=== PATIENT | male | born 1955 | race Caucasian/White ===

== ENCOUNTER 2020-06-01 07:20 | Inpatient (IN) ==
[2020-06-01] MEDS ORDERED: DEXTROSE 50% 25 GM/50 ML VIAL IV PRN ×2 (09:17)
[2020-06-01] MEDS ORDERED: GLUCAGON 1 MG VIAL IM PRN ×2 (09:17)
[2020-06-01] MEDS ORDERED: ZALEPLON 5 MG CAPSULE PO PRN (09:21)
[2020-06-01] MEDS ORDERED: CLORAZEPATE 3.75 MG TABLET PO PRN (09:21)
[2020-06-01] MEDS ORDERED: NITROGLYCERIN SL 0.4 MG TABLET SL PRN (09:22)
[2020-06-01] MEDS: SODIUM CHLORIDE 0.9% 1,000 ML IV SCH (09:30)
[2020-06-01 10:16] LABS: ABG HCO3 25.2 MMOL/L (20-26); ABG Oxygen Saturation 97.6 % (95-100); ABG PCO2 39.4 MM HG (35-48); ABG PH 7.417 (7.35-7.45); ABG PO2 95.5 MM HG (80-95)
[2020-06-01 10:38] LABS: Basophils % 0.6 % (0.0-0.8); Eosinophils # 0.2 10*3/uL (0.0-0.87); Eosinophils % 2.1 % (0.00-10.9); Hematocrit 42.2 VOL% (42.0-52.0); Immature Granulocytes % 0.3 %; Immature Granulocytes Absolute 0.02 #; Lymphocytes # 1.7 10*3/uL (1.4-4.0); Lymphocytes % 23.7 % (21.2-54.2); Mean Corpuscular HGB Conc 33.2 GM/DL (32-36); Mean Corpuscular Volume 87.6 FL (87-102); Mean Platelet Volume 10.8 FL (9.6-12.0); Monocytes % 9.2 % (1.7-12.7); Neutrophils % 64.1 % (38.7-73.9); Platelet Count 236 T/CUMM (130-400); Red Blood Count 4.82 MC/CUMM (3.8-5.5); Red Cell Distribution Width 13.2 % (9.3-17.3); White Blood Count 7.3 T/CUMM (4-12)
[2020-06-01 11:11] LABS: Albumin 3.4 G/DL (3.4-5.0); Bilirubin,Total 0.5 MG/DL (0.2-1.0); Calcium 9.1 MG/DL (8.5-10.1); Osmolality,Calculated 284.1 MOS/KG (273-304); Total Protein 8.4 G/DL (6.4-8.3)
[2020-06-01] MEDS: INSULIN REGULAR 100 UNIT/ML SUBCUT SCH ×3 (13:25→21:52)
[2020-06-01] MEDS: CHLORHEXIDINE 4% SOLN 118 ML BOTTLE TOP SCH ×2 (15:09→21:49)
[2020-06-01] MEDS ORDERED: PANTOPRAZOLE 40 MG TABLET PO ONE ×3 (15:48→23:09)
[2020-06-01] MEDS ORDERED: DIAZEPAM 5 MG TABLET PO ONE (15:48)
[2020-06-01] MEDS: CHLORHEXIDINE 0.12% ORAL RINSE 60 ML BOTTLE SWISH/SPIT SCH (21:49)
[2020-06-01] MEDS: carvediloL 3.125 MG TABLET PO SCH (21:49)
[2020-06-01] MEDS ORDERED: DIAZEPAM 5 MG TABLET ONE (23:08)
[2020-06-02] MEDS ORDERED: PAPAVERINE 60 MG/2 ML VIAL ONE (04:23)
[2020-06-02] MEDS ORDERED: VANCOMYCIN 500 MG VIAL ONE (04:24)
[2020-06-02] MEDS ORDERED: VANCOMYCIN 1,000 MG VIAL ONE (04:24)
[2020-06-02] MEDS ORDERED: CEFUROXIME INJ 1,500 MG in SODIUM CHLORIDE 0.9% 100 ML IV ONE (05:00)
[2020-06-02] MEDS ORDERED: HEPARIN/NACL 0.9% 2 UNITS/ML 500 ML IV ONE (05:46)
[2020-06-02] MEDS ORDERED: PHENYLEPHRINE DRIP 20 MG/250 ML PREMIX IV ONE ×2 (05:47→05:59)
[2020-06-02] MEDS ORDERED: NITROGLYCERIN DRIP 50 MG/250 ML BOTTLE IV ONE ×2 (05:47→06:03)
[2020-06-02] MEDS: CHLORHEXIDINE 4% SOLN 118 ML BOTTLE TOP SCH ×2 (05:56→12:36)
[2020-06-02] MEDS ORDERED: AMINOCAPROIC ACID 5,000 MG/20 ML VIAL ONE ×4 (05:56)
[2020-06-02] MEDS: SODIUM CHLORIDE 0.9% 1,000 ML IV SCH ×2 (05:56→20:00)
[2020-06-02] MEDS ORDERED: CALCIUM CHLORIDE 1,000 MG/10 ML VIAL IV ONE ×2 (05:57→10:46)
[2020-06-02] MEDS ORDERED: LIDOCAINE 2% 5 ML VIAL ONE ×2 (06:02→11:09)
[2020-06-02] MEDS ORDERED: ETOMIDATE 40 MG/20 ML VIAL IV ONE (06:02)
[2020-06-02] MEDS ORDERED: LACTATED RINGERS 1,000 ML IV ONE (06:03)
[2020-06-02] MEDS ORDERED: SODIUM CHLORIDE 0.9% 1,000 ML IV ONE (06:03)
[2020-06-02] MEDS ORDERED: SODIUM CHLORIDE 0.9% 250 ML IV ONE (06:03)
[2020-06-02] MEDS ORDERED: SUFentanil 250 MCG/5 ML AMP ONE ×3 (06:06→07:38)
[2020-06-02] MEDS ORDERED: MIDAZOLAM 10 MG/2 ML VIAL ONE ×4 (06:06→07:38)
[2020-06-02] MEDS ORDERED: VECURONIUM 10 MG VIAL IV ONE (06:07)
[2020-06-02 07:44] LABS: ABG Base Excess -1.6 MMOL/L (-2.5-2.5); ABG HCO3 23.1 MMOL/L (20-26); ABG Oxygen Saturation 99.7 % (95-100); ABG PCO2 32.6 MM HG (35-48); ABG PH 7.434 (7.35-7.45); ABG TCO2 19.2 MMOL/L (23-27); Glucose Heart Surgery 274 MG/DL (74-106); Hematocrit Heart Surgery 37.8 PERCENT (42-52); Hemoglobin Heart Surgery 12.3 G/DL (14.0-18.0); Ionized Calcium Arterial 1.23 MMOL/L (1.21-1.46); PCO2 Patient Temp Arterial 32.6 MMHG; PH Patient Temp Arterial 7.434; Patient Temperature 37 CELCIUS; Potassium Heart/CVR 4.2 MMOL/L (3.5-5.1); Sodium Heart/CVR 139 MMOL/L (135-145)
[2020-06-02] MEDS ORDERED: PHENYLEPHRINE DRIP 40 MG/250 ML PREMIX IV ONE (07:44)
[2020-06-02] MEDS ORDERED: NITROPRUSSIDE 50 MG/2 ML VIAL ONE (07:45)
[2020-06-02] MEDS ORDERED: MINERAL OIL/PETROLATUM OPH OINT 3.5 GM TUBE ONE (08:09)
[2020-06-02 08:23] LABS: Bilirubin,Urine Negative (Negative); Blood, Urine Negative (Negative); Glucose,Urine (UA) >=500 mg/dL (Negative); Ketones,Urine Negative (Negative); Mucus,Urine Occasional /LPF (Occasional); Nitrite,Urine Negative (Negative); Protein,Urine 30 MG/DL; RBC,Urine 1 /HPF (0-4); Squamous Epithelial Cell,Urine Occasional /HPF (0-10); Urine Appearance CLEAR (Clear); Urine Color Yellow (Yellow); Urine Specific Gravity 1.033 (1.001-1.035); Urine Urobilinogen < 2.0 EU/DL (0.2-1.0); WBC,Urine 1 /HPF (0-6)
[2020-06-02 09:24] LABS: Hematocrit Heart Surgery 28.4 PERCENT (42-52); Hemoglobin Heart Surgery 9.1 G/DL (14.0-18.0); PCO2 Patient Temp Venous 36.7 MM HG; PH Patient Temp Venous 7.438; PO2 Patient Temp Venous 40.4 MM HG; Potassium Heart/CVR 5.3 MMOL/L (3.5-5.1); VBG Base Excess 0.9 MEQ/L (0-4); VBG Oxygen Saturation 81.1 %; VBG PCO2 40.5 MMHG (41-51); VBG PH 7.409; VBG PO2 46.4 MMHG (17-40)
[2020-06-02 09:53] LABS: Hematocrit Heart Surgery 30.7 PERCENT (42-52); Hemoglobin Heart Surgery 9.9 G/DL (14.0-18.0); PCO2 Patient Temp Venous 31.9 MM HG; PH Patient Temp Venous 7.486; PO2 Patient Temp Venous 34.4 MM HG; Potassium Heart/CVR 5.2 MMOL/L (3.5-5.1); VBG Base Excess 1.2 MEQ/L (0-4); VBG HCO3 25.2 MEQ/L (24-28); VBG Oxygen Saturation 78.3 %; VBG PCO2 36.9 MMHG (41-51); VBG PH 7.441; VBG PO2 42.4 MMHG (17-40)
[2020-06-02 10:23] LABS: Hemoglobin Heart Surgery 10.3 G/DL (14.0-18.0); PCO2 Patient Temp Venous 35.5 MM HG; PH Patient Temp Venous 7.453; PO2 Patient Temp Venous 44.3 MM HG; Potassium Heart/CVR 5.5 MMOL/L (3.5-5.1); VBG Base Excess 1.2 MEQ/L (0-4); VBG HCO3 25.2 MEQ/L (24-28); VBG Oxygen Saturation 80.2 %; VBG PCO2 35.5 MMHG (41-51); VBG PH 7.453; VBG PO2 44.3 MMHG (17-40)
[2020-06-02 11:05] LABS: ABG Base Excess -0.5 MMOL/L (-2.5-2.5); ABG HCO3 22.9 MMOL/L (20-26); ABG Oxygen Saturation 99.4 % (95-100); ABG PCO2 33.2 MM HG (35-48); ABG PH 7.457 (7.35-7.45); ABG PO2 476.3 MM HG (80-95); ABG TCO2 23.9 MMOL/L (23-27); Glucose Heart Surgery 303 MG/DL (74-106); Hemoglobin Heart Surgery 10.8 G/DL (14.0-18.0); Ionized Calcium Arterial 1.27 MMOL/L (1.21-1.46); PCO2 Patient Temp Arterial 33.2 MMHG; PH Patient Temp Arterial 7.457; PO2 Patient Temp Arterial 476.3 MM HG; Patient Temperature 37 CELCIUS; Potassium Heart/CVR 4.7 MMOL/L (3.5-5.1); Sodium Heart/CVR 132 MMOL/L (135-145)
[2020-06-02] MEDS ORDERED: PROTAMINE SULFATE 250 MG/25 ML VIAL IV ONE (11:09)
[2020-06-02] MEDS ORDERED: MANNITOL 100 GM/500 ML BAG IV ONE (11:09)
[2020-06-02] MEDS ORDERED: DEXTROSE 5% KCL 20 MEQ 20 MEQ/1,000 ML BAG IV ONE (11:09)
[2020-06-02] MEDS ORDERED: MAGNESIUM SULFATE 5 GM/10 ML VIAL IV ONE (11:09)
[2020-06-02] MEDS ORDERED: ALBUMIN 25% 25 GM/100 ML VIAL IV ONE (11:09)
[2020-06-02] MEDS ORDERED: methylPREDNISolone SOD SUC 1,000 MG/8 ML VIAL ONE (11:09)
[2020-06-02] MEDS ORDERED: HEPARIN 10,000 UNIT/10 ML VIAL ONE (11:10)
[2020-06-02] MEDS ORDERED: FUROSEMIDE 20 MG/2 ML VIAL ONE (11:10)
[2020-06-02] MEDS ORDERED: SODIUM BICARBONATE 50 MEQ/50 ML VIAL IV ONE (11:10)
[2020-06-02] MEDS ORDERED: PROTAMINE SULFATE 50 MG/5 ML VIAL IV ONE ×2 (11:10→11:23)
[2020-06-02] MEDS ORDERED: THROMBIN TOPICAL (RECOMBINANT) 5,000 UNIT VIAL TOP ONE (11:34)
[2020-06-02] MEDS: LACTATED RINGERS 1,000 ML IV PRN ×5 (12:00→17:20)
[2020-06-02] MEDS ORDERED: INSULIN REGULAR 100 UNIT/ML IV ONE (12:07)
[2020-06-02] MEDS ORDERED: VECURONIUM 10 MG VIAL IV PRN ×2 (12:07)
[2020-06-02] MEDS ORDERED: MORPHINE 10 MG/1 ML VIAL IV PRN (12:07)
[2020-06-02] MEDS ORDERED: DEXTROSE 50% 25 GM/50 ML VIAL IV PRN ×2 (12:07)
[2020-06-02] MEDS ORDERED: MAGNESIUM SULF RIDER 2 GM in PREMIX 1 EACH IV PRN (12:07)
[2020-06-02] MEDS ORDERED: NITROPRUSSIDE 100 MG in DEXTROSE 5% 250 ML IV PRN (12:07)
[2020-06-02] MEDS ORDERED: CHLORHEXIDINE 4% SOLN 118 ML BOTTLE TOP PRN (12:07)
[2020-06-02] MEDS ORDERED: CALCIUM CHLORIDE 1,000 MG/10 ML SYRINGE IV PRN (12:07)
[2020-06-02] MEDS ORDERED: ACETAMINOPHEN 650 MG SUPP RECTAL PRN (12:07)
[2020-06-02] MEDS ORDERED: MIDAZOLAM 10 MG/2 ML VIAL IV PRN (12:07)
[2020-06-02] MEDS ORDERED: SODIUM CHLORIDE 0.45% 1,000 ML IV SCH (12:07)
[2020-06-02] MEDS ORDERED: MAGNESIUM SULF RIDER 4 GM in PREMIX 1 EACH IV PRN (12:07)
[2020-06-02] MEDS ORDERED: INSULIN REGULAR 100 UNIT/ML IV PRN (12:07)
[2020-06-02] MEDS ORDERED: MIDAZOLAM 2 MG/2 ML VIAL IV PRN (12:07)
[2020-06-02] MEDS ORDERED: MORPHINE 4 MG/1 ML VIAL IV PRN (12:07)
[2020-06-02] MEDS ORDERED: LACTATED RINGERS 250 ML IV PRN (12:07)
[2020-06-02 12:29] LABS: ABG Base Excess -0.5 MMOL/L (-2.5-2.5); ABG PH 7.477 (7.35-7.45); ABG TCO2 19.9 MMOL/L (23-27); Glucose Heart Surgery 318 MG/DL (74-106); Hematocrit Heart Surgery 33.4 PERCENT (42-52); Hemoglobin Heart Surgery 10.8 G/DL (14.0-18.0)
[2020-06-02 12:32] LABS: Basophils % 0.2 % (0.0-0.8); Eosinophils # 0.1 10*3/uL (0.0-0.87); Eosinophils % 0.7 % (0.00-10.9); Hematocrit 31.5 VOL% (42.0-52.0); Hemoglobin 10.6 GM/DL (14.0-18.0); Immature Granulocytes Absolute 0.12 #; Lymphocytes # 1.4 10*3/uL (1.4-4.0); Lymphocytes % 11.2 % (21.2-54.2); Mean Corpuscular HGB Conc 33.7 GM/DL (32-36); Mean Corpuscular Volume 86.1 FL (87-102); Mean Platelet Volume 10.7 FL (9.6-12.0); Monocytes % 7.2 % (1.7-12.7); Neutrophils % 79.7 % (38.7-73.9); Platelet Count 167 T/CUMM (130-400); Red Blood Count 3.66 MC/CUMM (3.8-5.5); Red Cell Distribution Width 13.2 % (9.3-17.3); White Blood Count 12.1 T/CUMM (4-12)
[2020-06-02] MEDS: DOBUTamine 500 MG/250 ML PREMIX IV PRN (12:59)
[2020-06-02 13:01] LABS: CKMB % 6.5 %
[2020-06-02 13:06] LABS: Troponin I 8.13 NG/ML (0.00-0.045)
[2020-06-02 13:11] LABS: Albumin 2.9 G/DL (3.4-5.0); Bilirubin,Total 1.2 MG/DL (0.2-1.0); Calcium 8.7 MG/DL (8.5-10.1); Osmolality,Calculated 288.5 MOS/KG (273-304); Total Protein 6.4 G/DL (6.4-8.3)
[2020-06-02] MEDS: INSULIN REGULAR DRIP 100 ML IV SCH (13:11)
[2020-06-02] MEDS: SODIUM CHLORIDE 0.45% 1,000 ML IV SCH (13:31)
[2020-06-02 13:36] LABS: INR 1.3; PT Patient Result 13.4 SECS (9.8-11.9); Partial Thromboplastin Time 27.1 SECS (23.9-33.8)
[2020-06-02 14:16] LABS: ABG Base Excess 0.4 MMOL/L (-2.5-2.5); ABG HCO3 24.8 MMOL/L (20-26); ABG PCO2 32.5 MM HG (35-48); ABG PH 7.468 (7.35-7.45); Glucose Heart Surgery 282 MG/DL (74-106); Hematocrit Heart Surgery 34.2 PERCENT (42-52); Hemoglobin Heart Surgery 11.1 G/DL (14.0-18.0); Potassium Heart/CVR 3.5 MMOL/L (3.5-5.1)
[2020-06-02] MEDS: POTASSIUM CHLORIDE RIDER 20 MEQ in PREMIX 1 EACH IV PRN ×3 (14:36→23:41)
[2020-06-02] MEDS: ALBUMIN 5% 12.5 GM in PREMIX 1 EACH IV PRN ×3 (14:36→21:10)
[2020-06-02] MEDS: POTASSIUM CHLORIDE RIDER 10 MEQ in PREMIX 1 EACH IV PRN ×3 (15:15→19:16)
[2020-06-02] MEDS: PHENYLEPHRINE DRIP 40 MG/250 ML PREMIX IV PRN (15:51)
[2020-06-02 16:55] LABS: ABG Base Excess -0.7 MMOL/L (-2.5-2.5); ABG HCO3 23.8 MMOL/L (20-26); ABG PCO2 33.5 MM HG (35-48); ABG PH 7.442 (7.35-7.45); ABG TCO2 20.8 MMOL/L (23-27); Glucose Heart Surgery 202 MG/DL (74-106); Hematocrit Heart Surgery 30.6 PERCENT (42-52); Hemoglobin Heart Surgery 9.9 G/DL (14.0-18.0); Potassium Heart/CVR 3.9 MMOL/L (3.5-5.1)
[2020-06-02] MEDS: AMIODARONE INJ 150 MG in DEXTROSE 5% 100 ML IV ONE ×2 (18:54→18:55)
[2020-06-02] MEDS ORDERED: AMIODARONE INJ 450 MG in DEXTROSE 5% 241 ML IV SCH (19:00)
[2020-06-02 19:01] LABS: ABG Base Excess -1.5 MMOL/L (-2.5-2.5); ABG HCO3 23.2 MMOL/L (20-26); ABG Oxygen Saturation 99.1 % (95-100); ABG PCO2 37.1 MM HG (35-48); ABG TCO2 20.9 MMOL/L (23-27); Glucose Heart Surgery 204 MG/DL (74-106); Hematocrit Heart Surgery 30.9 PERCENT (42-52); Potassium Heart/CVR 4.3 MMOL/L (3.5-5.1)
[2020-06-02] MEDS: AMIODARONE INJ 450 MG in DEXTROSE 5% 241 ML IV SCH (19:06)
[2020-06-02] MEDS: CEFUROXIME INJ 1,500 MG in SODIUM CHLORIDE 0.9% 100 ML IV SCH (19:08)
[2020-06-02] MEDS ORDERED: FUROSEMIDE 40 MG/4 ML VIAL IV PRN (19:36)
[2020-06-02] MEDS: KETOROLAC 30 MG/1 ML VIAL IV SCH (19:55)
[2020-06-02] MEDS: INSULIN REGULAR 100 UNIT/ML SUBCUT SCH ×2 (19:59→20:00)
[2020-06-02] MEDS: carvediloL 3.125 MG TABLET PO SCH (20:00)
[2020-06-02] MEDS: CHLORHEXIDINE 0.12% ORAL RINSE 60 ML BOTTLE SWISH/SPIT SCH ×2 (20:00→20:04)
[2020-06-02 20:50] LABS: CKMB % 5.1 %
[2020-06-02 20:51] LABS: Troponin I 4.93 NG/ML (0.00-0.045)
[2020-06-02 22:27] LABS: ABG Base Excess -5.5 MMOL/L (-2.5-2.5); ABG HCO3 20.7 MMOL/L (20-26); ABG Oxygen Saturation 98.4 % (95-100); ABG PCO2 43.6 MM HG (35-48); ABG PH 7.295 (7.35-7.45); ABG PO2 148.2 MM HG (80-95); ABG TCO2 22.1 MMOL/L (23-27); Glucose Heart Surgery 199 MG/DL (74-106); Hemoglobin Heart Surgery 10.4 G/DL (14.0-18.0)
[2020-06-02 23:11] LABS: ABG Base Excess -5.5 MMOL/L (-2.5-2.5); ABG HCO3 19.9 MMOL/L (20-26); ABG Oxygen Saturation 98.8 % (95-100); ABG PH 7.307 (7.35-7.45); ABG TCO2 18.8 MMOL/L (23-27); Glucose Heart Surgery 243 MG/DL (74-106); Hematocrit Heart Surgery 30.5 PERCENT (42-52); Hemoglobin Heart Surgery 9.9 G/DL (14.0-18.0); Potassium Heart/CVR 3.8 MMOL/L (3.5-5.1)
[2020-06-03] MEDS: POTASSIUM CHLORIDE RIDER 10 MEQ in PREMIX 1 EACH IV PRN (00:15)
[2020-06-03 01:14] LABS: ABG Base Excess -3.3 MMOL/L (-2.5-2.5); ABG HCO3 21.6 MMOL/L (20-26); ABG Oxygen Saturation 96.7 % (95-100); ABG PCO2 32.8 MM HG (35-48); ABG PH 7.407 (7.35-7.45); ABG PO2 83.8 MM HG (80-95); ABG TCO2 18.9 MMOL/L (23-27); Glucose Heart Surgery 211 MG/DL (74-106); Hematocrit Heart Surgery 29.8 PERCENT (42-52); Hemoglobin Heart Surgery 9.6 G/DL (14.0-18.0); Potassium Heart/CVR 4.8 MMOL/L (3.5-5.1)
[2020-06-03 02:17] LABS: ABG HCO3 21.9 MMOL/L (20-26); ABG Oxygen Saturation 99.4 % (95-100); ABG PCO2 39.6 MM HG (35-48); ABG PH 7.356 (7.35-7.45); ABG TCO2 20.3 MMOL/L (23-27); Glucose Heart Surgery 185 MG/DL (74-106); Hematocrit Heart Surgery 30.1 PERCENT (42-52); Hemoglobin Heart Surgery 9.7 G/DL (14.0-18.0); Potassium Heart/CVR 4.5 MMOL/L (3.5-5.1)
[2020-06-03] MEDS: INSULIN REGULAR DRIP 100 ML IV SCH (02:52)
[2020-06-03] MEDS: LACTATED RINGERS 1,000 ML IV PRN (02:55)
[2020-06-03] MEDS: ONDANSETRON 4 MG/2 ML VIAL IV PRN ×2 (03:43→09:30)
[2020-06-03] MEDS: ALBUMIN 5% 12.5 GM in PREMIX 1 EACH IV PRN ×3 (03:46→09:29)
[2020-06-03 04:18] LABS: ABG Base Excess -2.7 MMOL/L (-2.5-2.5); ABG HCO3 22.7 MMOL/L (20-26); ABG PCO2 41.9 MM HG (35-48); ABG PH 7.352 (7.35-7.45); ABG PO2 115.6 MM HG (80-95); Glucose Heart Surgery 117 MG/DL (74-106); Hemoglobin Heart Surgery 9.6 G/DL (14.0-18.0); Potassium Heart/CVR 4.2 MMOL/L (3.5-5.1)
[2020-06-03] MEDS ORDERED: FUROSEMIDE 40 MG/4 ML VIAL IV ONE (04:24)
[2020-06-03 04:39] LABS: Basophils % 0.1 % (0.0-0.8); Hematocrit 28.4 VOL% (42.0-52.0); Hemoglobin 9.2 GM/DL (14.0-18.0); Immature Granulocytes % 0.5 %; Immature Granulocytes Absolute 0.07 #; Lymphocytes # 0.5 10*3/uL (1.4-4.0); Lymphocytes % 3.6 % (21.2-54.2); Mean Corpuscular HGB Conc 32.4 GM/DL (32-36); Mean Platelet Volume 11.4 FL (9.6-12.0); Monocytes % 7.1 % (1.7-12.7); Neutrophils % 88.7 % (38.7-73.9); Platelet Count 135 T/CUMM (130-400); Red Blood Count 3.19 MC/CUMM (3.8-5.5); Red Cell Distribution Width 13.5 % (9.3-17.3); White Blood Count 13.4 T/CUMM (4-12)
[2020-06-03 04:50] LABS: Albumin 3.7 G/DL (3.4-5.0); Bilirubin,Direct 0.2 MG/DL (0.0-0.20); Bilirubin,Total 0.7 MG/DL (0.2-1.0); CKMB % 6.6 %; Calcium 8.3 MG/DL (8.5-10.1); Osmolality,Calculated 283.4 MOS/KG (273-304); Total Protein 6.5 G/DL (6.4-8.3)
[2020-06-03 04:51] LABS: Troponin I 4.54 NG/ML (0.00-0.045)
[2020-06-03] MEDS: KETOROLAC 30 MG/1 ML VIAL IV SCH (05:15)
[2020-06-03] MEDS: CEFUROXIME INJ 1,500 MG in SODIUM CHLORIDE 0.9% 100 ML IV SCH ×2 (06:20→18:20)
[2020-06-03 07:12] LABS: Glucose Heart Surgery 121 MG/DL (74-106); Hemoglobin Heart Surgery 10.1 G/DL (14.0-18.0); PCO2 Patient Temp Venous 50.8 MM HG; PH Patient Temp Venous 7.318; PO2 Patient Temp Venous 33.7 MM HG; Patient Temperature 37 CELCIUS; Potassium Heart/CVR 4.4 MMOL/L (3.5-5.1); Sodium Heart/CVR 137 MMOL/L (135-145); VBG HCO3 25.5 MEQ/L (24-28); VBG Oxygen Saturation 55.2 %; VBG PCO2 50.8 MMHG (41-51); VBG PH 7.318; VBG PO2 33.7 MMHG (17-40)
[2020-06-03] MEDS: INSULIN REGULAR 100 UNIT/ML SUBCUT SCH ×4 (08:03→21:39)
[2020-06-03] MEDS: AMIODARONE INJ 450 MG in DEXTROSE 5% 241 ML IV SCH ×2 (08:03→09:30)
[2020-06-03] MEDS: CHLORHEXIDINE 0.12% ORAL RINSE 60 ML BOTTLE SWISH/SPIT SCH ×2 (08:37→21:55)
[2020-06-03 09:21] LABS: Band Neutrophils 5 % (0-10); Hypochromasia 1+; Lymphocytes 6 % (20-55); Microcytosis 1+; Segmented Neutrophils 85 % (50-85); Total Cells Counted 100
[2020-06-03 09:22] LABS: Platelet Estimate Adequate
[2020-06-03] MEDS ORDERED: PANTOPRAZOLE 40 MG VIAL IV ONE (09:45)
[2020-06-03] MEDS ORDERED: PROMETHAZINE INJ 12.5 MG in SODIUM CHLORIDE 0.9% 50 ML IV PRN (10:48)
[2020-06-03] MEDS: AMIODARONE 200 MG TABLET PO SCH ×2 (11:48→22:48)
[2020-06-03 13:02] LABS: CKMB % 6.9 %
[2020-06-03 13:05] LABS: Troponin I 5.09 NG/ML (0.00-0.045)
[2020-06-03] MEDS: SODIUM CHLORIDE 0.45% 1,000 ML IV SCH (15:44)
[2020-06-03] MEDS: DOBUTamine 500 MG/250 ML PREMIX IV PRN (15:45)
[2020-06-03] MEDS: PHENYLEPHRINE DRIP 40 MG/250 ML PREMIX IV PRN (15:46)
[2020-06-03] MEDS ORDERED: SODIUM CHLORIDE 0.45% 1,000 ML IV SCH (16:00)
[2020-06-03] MEDS ORDERED: ROSUVASTATIN 20 MG TABLET PO SCH (21:00)
[2020-06-04] MEDS: INSULIN REGULAR 100 UNIT/ML SUBCUT SCH ×6 (01:35→23:00)
[2020-06-04 05:14] LABS: Basophils % 0.1 % (0.0-0.8); Hematocrit 29.9 VOL% (42.0-52.0); Hemoglobin 9.8 GM/DL (14.0-18.0); Immature Granulocytes % 1.1 %; Immature Granulocytes Absolute 0.21 #; Lymphocytes # 1.2 10*3/uL (1.4-4.0); Lymphocytes % 5.9 % (21.2-54.2); Mean Corpuscular HGB Conc 32.8 GM/DL (32-36); Mean Platelet Volume 11.6 FL (9.6-12.0); Monocytes % 9.1 % (1.7-12.7); Neutrophils % 83.8 % (38.7-73.9); Platelet Count 147 T/CUMM (130-400); Red Blood Count 3.36 MC/CUMM (3.8-5.5); Red Cell Distribution Width 13.8 % (9.3-17.3)
[2020-06-04 05:35] LABS: Albumin 3.5 G/DL (3.4-5.0); Bilirubin,Direct 0.29 MG/DL (0.0-0.20); Calcium 8.1 MG/DL (8.5-10.1); Osmolality,Calculated 283.2 MOS/KG (273-304); Total Protein 6.7 G/DL (6.4-8.3)
[2020-06-04 08:42] LABS: Lymphocytes 5 % (20-55); Segmented Neutrophils 89 % (50-85); Total Cells Counted 100
[2020-06-04 08:43] LABS: Hypochromasia 2+; Platelet Estimate Adequate
[2020-06-04] MEDS ORDERED: ASPIRIN EC 325 MG TABLET PO SCH (09:00)
[2020-06-04] MEDS: AMIODARONE 200 MG TABLET PO SCH (09:17)
[2020-06-04] MEDS: CHLORHEXIDINE 0.12% ORAL RINSE 60 ML BOTTLE SWISH/SPIT SCH ×2 (09:19→22:32)
[2020-06-04] MEDS ORDERED: ZALEPLON 5 MG CAPSULE PO PRN (10:11)
[2020-06-04] MEDS ORDERED: MAGNESIUM HYDROXIDE SUSP 30 ML UDCUP PO PRN (10:11)
[2020-06-04] MEDS ORDERED: POTASSIUM CHLORIDE 20 MEQ TABLET PO PRN (10:11)
[2020-06-04] MEDS ORDERED: MAGNESIUM SULF RIDER 4 GM in PREMIX 1 EACH IV PRN (10:11)
[2020-06-04] MEDS ORDERED: GLUCAGON 1 MG VIAL IM PRN ×2 (10:11)
[2020-06-04] MEDS ORDERED: oxyCODONE/ACETAMINOPHEN 5-325 MG TABLET PO PRN (10:11)
[2020-06-04] MEDS ORDERED: MAGNESIUM SULF RIDER 2 GM in PREMIX 1 EACH IV PRN (10:11)
[2020-06-04] MEDS ORDERED: DEXTROSE 50% 25 GM/50 ML VIAL IV PRN ×2 (10:11)
[2020-06-04] MEDS ORDERED: SODIUM CHLOR 0.45% KCL 20 MEQ 20 MEQ/1,000 ML BAG IV SCH (10:11)
[2020-06-04] MEDS ORDERED: ACETAMINOPHEN 325 MG TABLET PO PRN (10:11)
[2020-06-04] MEDS ORDERED: MORPHINE 4 MG/1 ML VIAL IV PRN (10:11)
[2020-06-04] MEDS ORDERED: FUROSEMIDE 40 MG/4 ML VIAL IV ONE (15:11)
[2020-06-04] MEDS: ONDANSETRON 4 MG/2 ML VIAL IV PRN (17:10)
[2020-06-04] MEDS: metFORMIN 500 MG TABLET PO SCH (17:48)
[2020-06-05] MEDS ORDERED: FUROSEMIDE 40 MG/4 ML VIAL IV ONE (06:00)
[2020-06-05 06:09] LABS: Basophils % 0.1 % (0.0-0.8); Hematocrit 28.9 VOL% (42.0-52.0); Hemoglobin 9.5 GM/DL (14.0-18.0); Immature Granulocytes % 0.9 %; Immature Granulocytes Absolute 0.14 #; Lymphocytes % 6.8 % (21.2-54.2); Mean Corpuscular HGB Conc 32.9 GM/DL (32-36); Mean Corpuscular Volume 89.5 FL (87-102); Mean Platelet Volume 12.3 FL (9.6-12.0); Monocytes % 7.1 % (1.7-12.7); Neutrophils % 85.1 % (38.7-73.9); Platelet Count 116 T/CUMM (130-400); Red Blood Count 3.23 MC/CUMM (3.8-5.5); Red Cell Distribution Width 13.6 % (9.3-17.3); White Blood Count 15.1 T/CUMM (4-12)
[2020-06-05 06:37] LABS: Albumin 3.4 G/DL (3.4-5.0); Bilirubin,Direct 0.24 MG/DL (0.0-0.20); Bilirubin,Indirect 0.8 MG/DL (0.0-1.0); Calcium 8.6 MG/DL (8.5-10.1); Osmolality,Calculated 283.4 MOS/KG (273-304); Total Protein 7.1 G/DL (6.4-8.3)
[2020-06-05 06:39] LABS: Troponin I 5.21 NG/ML (0.00-0.045)
[2020-06-05] MEDS: INSULIN REGULAR 100 UNIT/ML SUBCUT SCH ×3 (08:30→16:07)
[2020-06-05] MEDS: CHLORHEXIDINE 0.12% ORAL RINSE 60 ML BOTTLE SWISH/SPIT SCH ×2 (08:31→21:22)
[2020-06-05] MEDS: DOCUSATE SODIUM 100 MG CAPSULE PO SCH (08:32)
[2020-06-05] MEDS: ASPIRIN EC 325 MG TABLET PO SCH (08:32)
[2020-06-05] MEDS: metFORMIN 500 MG TABLET PO SCH ×2 (08:32→16:07)
[2020-06-05] MEDS: FERROUS SULFATE 325 MG TABLET PO SCH (08:33)
[2020-06-05] MEDS: PANTOPRAZOLE 40 MG TABLET PO SCH (08:34)
[2020-06-05] MEDS: FARXIGA PO SCH (08:35)
[2020-06-05] MEDS: POLYETHYLENE GLYCOL POWDER 17 GM PACK PO SCH (11:15)
[2020-06-05] MEDS: ONDANSETRON 4 MG/2 ML VIAL IV PRN (19:18)
[2020-06-06] MEDS: INSULIN REGULAR 100 UNIT/ML SUBCUT SCH ×5 (00:02→21:23)
[2020-06-06 08:18] LABS: Basophils % 0.1 % (0.0-0.8); Eosinophils % 0.1 % (0.00-10.9); Hematocrit 29.8 VOL% (42.0-52.0); Hemoglobin 9.8 GM/DL (14.0-18.0); Immature Granulocytes % 0.6 %; Immature Granulocytes Absolute 0.08 #; Lymphocytes # 1.6 10*3/uL (1.4-4.0); Lymphocytes % 12.6 % (21.2-54.2); Mean Corpuscular HGB Conc 32.9 GM/DL (32-36); Mean Platelet Volume 11.4 FL (9.6-12.0); Neutrophils % 76.6 % (38.7-73.9); Platelet Count 144 T/CUMM (130-400); Red Blood Count 3.31 MC/CUMM (3.8-5.5); Red Cell Distribution Width 13.5 % (9.3-17.3); White Blood Count 12.3 T/CUMM (4-12)
[2020-06-06 08:40] LABS: Alanine Aminotransferase 781 U/L (16-61); Albumin 3.2 G/DL (3.4-5.0); Alkaline Phosphatase 119 U/L (45-117); Aspartate Amino Transferase 283 U/L (0-37); Bilirubin,Indirect 0.7 MG/DL (0.0-1.0); Blood Urea Nitrogen 43 MG/DL (7-18); Calcium 8.5 MG/DL (8.5-10.1); Estimated Glom Filtration Rate 95 ML/MIN; Glucose 148 MG/DL (74-106); Osmolality,Calculated 279.4 MOS/KG (273-304); Total Protein 6.8 G/DL (6.4-8.3)
[2020-06-06] MEDS: ALUMINUM/MAGNES/SIMETH MAX STR 30 ML UDCUP PO PRN (09:54)
[2020-06-06] MEDS: FERROUS SULFATE 325 MG TABLET PO SCH (09:55)
[2020-06-06] MEDS: PANTOPRAZOLE 40 MG TABLET PO SCH (09:55)
[2020-06-06] MEDS: DOCUSATE SODIUM 100 MG CAPSULE PO SCH (09:55)
[2020-06-06] MEDS: metFORMIN 500 MG TABLET PO SCH ×2 (09:55→16:24)
[2020-06-06] MEDS: ASPIRIN EC 325 MG TABLET PO SCH (09:55)
[2020-06-06] MEDS: FUROSEMIDE 40 MG TABLET PO SCH (09:55)
[2020-06-06] MEDS: CHLORHEXIDINE 0.12% ORAL RINSE 60 ML BOTTLE SWISH/SPIT SCH ×2 (09:56→21:22)
[2020-06-06] MEDS: POLYETHYLENE GLYCOL POWDER 17 GM PACK PO SCH (09:56)
[2020-06-06] MEDS: FARXIGA PO SCH (10:11)
[2020-06-06] MEDS: ONDANSETRON 4 MG/2 ML VIAL IV PRN (13:05)
[2020-06-06] MEDS ORDERED: HYDROCORTISONE 2.5% RECTAL CREAM 30 GM TUBE TOP PRN (13:32)
[2020-06-06] MEDS: carvediloL 3.125 MG TABLET PO SCH (21:23)
[2020-06-07] MEDS: ALUMINUM/MAGNES/SIMETH MAX STR 30 ML UDCUP PO PRN (03:02)
[2020-06-07 05:52] LABS: Basophils % 0.1 % (0.0-0.8); Eosinophils % 0.2 % (0.00-10.9); Hemoglobin 9.1 GM/DL (14.0-18.0); Immature Granulocytes % 0.9 %; Immature Granulocytes Absolute 0.08 #; Lymphocytes # 1.4 10*3/uL (1.4-4.0); Lymphocytes % 14.5 % (21.2-54.2); Mean Corpuscular HGB Conc 32.5 GM/DL (32-36); Mean Corpuscular Volume 88.1 FL (87-102); Mean Platelet Volume 11.1 FL (9.6-12.0); Monocytes % 12.3 % (1.7-12.7); Platelet Count 167 T/CUMM (130-400); Red Blood Count 3.18 MC/CUMM (3.8-5.5); Red Cell Distribution Width 13.4 % (9.3-17.3); White Blood Count 9.3 T/CUMM (4-12)
[2020-06-07 06:02] LABS: Calcium 8.5 MG/DL (8.5-10.1); Osmolality,Calculated 284.1 MOS/KG (273-304)
[2020-06-07] MEDS: INSULIN REGULAR 100 UNIT/ML SUBCUT SCH ×4 (07:57→20:53)
[2020-06-07] MEDS: FERROUS SULFATE 325 MG TABLET PO SCH (09:02)
[2020-06-07] MEDS: carvediloL 3.125 MG TABLET PO SCH ×2 (09:02→20:53)
[2020-06-07] MEDS: metFORMIN 500 MG TABLET PO SCH ×2 (09:02→16:39)
[2020-06-07] MEDS: PANTOPRAZOLE 40 MG TABLET PO SCH (09:02)
[2020-06-07] MEDS: FUROSEMIDE 40 MG TABLET PO SCH (09:02)
[2020-06-07] MEDS: CHLORHEXIDINE 0.12% ORAL RINSE 60 ML BOTTLE SWISH/SPIT SCH ×2 (09:03→20:53)
[2020-06-07] MEDS: ASPIRIN EC 325 MG TABLET PO SCH (09:03)
[2020-06-07] MEDS: DOCUSATE SODIUM 100 MG CAPSULE PO SCH (09:03)
[2020-06-07] MEDS: FARXIGA PO SCH (09:13)
[2020-06-07] MEDS: POLYETHYLENE GLYCOL POWDER 17 GM PACK PO SCH (09:13)
[2020-06-08 05:38] LABS: Basophils % 0.1 % (0.0-0.8); Eosinophils # 0.1 10*3/uL (0.0-0.87); Eosinophils % 1.2 % (0.00-10.9); Hematocrit 27.9 VOL% (42.0-52.0); Hemoglobin 9.1 GM/DL (14.0-18.0); Immature Granulocytes Absolute 0.09 #; Lymphocytes # 1.9 10*3/uL (1.4-4.0); Mean Corpuscular HGB Conc 32.6 GM/DL (32-36); Mean Corpuscular Volume 89.4 FL (87-102); Mean Platelet Volume 11.1 FL (9.6-12.0); Monocytes % 12.7 % (1.7-12.7); Platelet Count 188 T/CUMM (130-400); Red Blood Count 3.12 MC/CUMM (3.8-5.5); Red Cell Distribution Width 13.6 % (9.3-17.3); White Blood Count 8.6 T/CUMM (4-12)
[2020-06-08 06:38] LABS: Alanine Aminotransferase 374 U/L (16-61); Albumin 2.9 G/DL (3.4-5.0); Alkaline Phosphatase 89 U/L (45-117); Aspartate Amino Transferase 49 U/L (0-37); Bilirubin,Indirect 0.8 MG/DL (0.0-1.0); Blood Urea Nitrogen 36 MG/DL (7-18); Calcium 8.3 MG/DL (8.5-10.1); Glucose 142 MG/DL (74-106); Osmolality,Calculated 279.1 MOS/KG (273-304); Total Protein 6.4 G/DL (6.4-8.3)
[2020-06-08 06:41] LABS: Estimated Glom Filtration Rate 94 ML/MIN
[2020-06-08] MEDS: PANTOPRAZOLE 40 MG TABLET PO SCH (09:45)
[2020-06-08] MEDS: carvediloL 3.125 MG TABLET PO SCH (09:45)
[2020-06-08] MEDS: FUROSEMIDE 40 MG TABLET PO SCH (09:45)
[2020-06-08] MEDS: CHLORHEXIDINE 0.12% ORAL RINSE 60 ML BOTTLE SWISH/SPIT SCH (09:46)
[2020-06-08] MEDS: POLYETHYLENE GLYCOL POWDER 17 GM PACK PO SCH (09:46)
[2020-06-08] MEDS: metFORMIN 500 MG TABLET PO SCH (09:47)
[2020-06-08] MEDS: INSULIN REGULAR 100 UNIT/ML SUBCUT SCH (09:47)
[2020-06-08] MEDS: FERROUS SULFATE 325 MG TABLET PO SCH (09:47)
[2020-06-08] MEDS: DOCUSATE SODIUM 100 MG CAPSULE PO SCH (09:48)
[2020-06-08] MEDS: FARXIGA PO SCH (09:48)
[2020-06-08] MEDS: ASPIRIN EC 325 MG TABLET PO SCH (09:48)
[2020-06-08 12:56] VITALS: BP 119/57
[2020-06-08] MEDS ORDERED: ATORVASTATIN 40 MG TABLET PO SCH (21:00)
== END 2020-06-08 12:35 | disposition home health service (06) | DRG 166 ==
LOC: N.3E 09:03 → N.CVR 06-02 11:35 → N.ICU 06-03 10:12 → N.TELES 06-04 17:28